=== PATIENT | female | born 1995 | race Caucasian/White ===

== ENCOUNTER 2021-03-18 13:23 | Outpatient (CLI) | payer OTHER, SELFPAY ==
--- NOTE | ~2021-03-18 | US_ITS ---
EXAMINATION: US OB <= 14 weeks fetus DATE: 03/18/2021 14:05 INDICATION: Vaginal spotting during first trimester . TECHNIQUE: Real-time pelvic ultrasound utilizing both a transvaginal and transabdominal probe was pe rformed. The interpreting radiologist was not present for the study. COMPARISON: None. FINDINGS: Portions of the uterus are obscured by the shadowing approximately 5 cm mass which exerts mass effect upon the more anterior bladder, possibly representing a calcified subserosal fibroid. There is an in trauterine gestational sac. A yolk sac and pole are identified. The crown rump length measures 1.1 cm, which correlates with an estimated gestational age of 7 weeks and 2 days. heart motion is identified measuring 135 beats per minute (bpm) by M-mode Doppler. The ovaries are not visualized. There is no free fluid in the pelvis. IMPRESSION: 1. Single living fetus with heart rate of 135 bpm. 2. Gestational age by ultrasound of 7 weeks 2 day(s) +/- 5 day(s) with ultrasound estimated date of d elivery (CARLIE) of 11/02/2021. 3. Indeterminate 5 cm shadowing mass which partially obscures the uterus which could represent a calc ified uterine fibroid Reviewed, dictated and finalized at location B. IMPRESSION: 1. Single living fetus with heart rate of 135 bpm. 2. Gestational age by ultrasound of 7 weeks 2 day(s) +/- 5 day(s) with ultrasou nd estimated date of delivery (CARLIE) of 11/02/2021. 3. Indeterminate 5 cm shadowing mass which partially obscures the uterus which could represent a calcified uterine fibroid
== END 2021-03-18 13:24 | disposition home or self-care (01) ==
PROVIDERS: Visit Provider Obstetrics & Gynecology
DX: O26.859 Spotting complicating pregnancy, unspecified trimester (principal); Z3A.01 Less than 8 weeks gestation of pregnancy
CPT/HCPCS: 76801

== ENCOUNTER 2021-10-26 00:01 | Inpatient (IN) | payer OTHER, SELFPAY ==
[2021-10-26] VITALS (181 sets, daily range): BP systolic 109–157; BP diastolic 57–107; PULSE 69–213; RESP 14–22; TEMP 36.6–37.6; O2SAT 94–100; BMI 40.3
--- OUTSIDE RECORDS SUMMARY | 2021-10-26 00:05 | XMS_ITS | Encounter Summary ---
:1995 Author Reason for Visit OB visit Assessment and Plan 1. Group B Streptococcus carrier 2. Routine care Discussion Note: None recorded.Patient educational handouts: No information available. Plan of Care Reminders Provider Appointments None ? ? recorded. Lab None ? ? recorded. Referral None ? ? recorded. Procedures None ? ? recorded. Surgeries None ? ? recorded. Imaging None ? ? recorded. Medications Name Start Date ? ? binzokzqca-dwrvtcgrjvxqz-pztvvmqg 50 mg-300 mg-40 mg c apsule ? TAKE 1 CAPSULE BY MOUTH EVERY 6 HOURS A S NEEDED FOR HEADACHE. DO NOT EXCEED 6 CAPSULES PER DAY ondansetron 4 mg disintegrating tablet ? PLACE 1 TABLET UNDER THE TONGUE EVERY 6-8 HOURS ? Medications Administered None recorded. Vitals Height Weight BMI Blood Pressure 5 ft 3 in 216 lbs 38.3 kg/m2 120/83 mm[Hg] Results Lab Results None recorded. Allergies Code Code System Name Reaction Severity Onset NKDA ? ? ? Problems Name Status Onset Date Source ? Active 04/26/2021 ?
--- OUTSIDE RECORDS SUMMARY | 2021-10-26 00:05 | XMS_ITS | Encounter Summary ---
:1995 Author Reason for Visit OB visit OB [id number] EDC 11/02/2021 LMP 01/25/2021 Assessment and Plan Assessment Note Patient is __36_weeks . Dis cussed plan. 1. Routine care Discussion Note: None recorded.Patient educational handouts: No information available. Plan of Care Reminders Provider Appointments None ? ? recorded. Lab None ? ? recorded. Referral None ? ? recorded. Procedures None ? ? recorded. Surgeries None ? ? recorded. Imaging None ? ? recorded. Medications Name Start Date ? ? fpnadblisl-aehmgeyrzaodf-hpmwlkbu 50 mg-300 mg-40 mg c apsule ? TAKE 1 CAPSULE BY MOUTH EVERY 6 HOURS A S NEEDED FOR HEADACHE. DO NOT EXCEED 6 CAPSULES PER DAY ondansetron 4 mg disintegrating tablet ? PLACE 1 TABLET UNDER THE TONGUE EVERY 6-8 HOURS ? Medications Administered None recorded. Vitals Height Weight BMI Blood Pressure 5 ft 3 in 213 lbs 37.7 kg/m2 117/80 mm[Hg] Results Lab Results None recorded. Allergies Code Code System Name Reaction Severity Onset NKDA ? ? ? Problems Name Status Onset Date Source
--- OUTSIDE RECORDS SUMMARY | 2021-10-26 00:05 | XMS_ITS | Encounter Summary ---
:1995 Author Reason for Visit OB visit OB [id number] Assessment and Plan Assessment Note Patient is ___weeks . Discu ssed plan. 1. Routine care ? ondansetron 4 mg disintegr ating tablet Discussion Note: None recorded.Patient educational handouts: No information available. Plan of Care Reminders Provider Appointments None ? ? recorded. Lab None ? ? recorded. Referral None ? ? recorded. Procedures None ? ? recorded. Surgeries None ? ? recorded. Imaging None ? ? recorded. Medications Name Start Date ? ? gtrzeogbdc-dovgclbwxrxdt-riqhezix 50 mg-300 mg-40 mg c apsule ? TAKE 1 CAPSULE BY MOUTH EVERY 6 HOURS A S NEEDED FOR HEADACHE. DO NOT EXCEED 6 CAPSULES PER DAY ondansetron 4 mg disintegrating tablet ? PLACE 1 TABLET UNDER THE TONGUE EVERY 6-8 HOURS ? Medications Administered None recorded. Vitals Height BMI 5 ft 3 in 36.3 kg/m2 Results Lab Results None recorded. Allergies Code Code System Name Reaction Severity Onset NKDA ? ? ? Problems Name
--- OUTSIDE RECORDS SUMMARY | 2021-10-26 00:05 | XMS_ITS ---
:1995 Author Care Team Providers Name Role Phone Yolis Burgos Primary Care Provider Unavailable Allergies Code Code System Name Reaction Severity Status Onset NKDA ? Medications Name Status Start Date Stop Date ? ? dbvgygpxqw-tmanewkelqtzr-qjaihptk 50 mg-300 mg-40 mg capsule Act scooter ? Not available TAKE 1 CAPSULE BY MOUTH EVERY 6 HOURS A S NEEDED FOR HEADACHE. DO NOT EXCEED 6 CAPSULES PER DAY fluconazole 150 mg tablet Completed ? 2020 TAKE 1 TABLET BY MOUTH ONCE DAILY ketoconazole 2 % shampoo Completed ? 021 APPLY TO WET HAIR LEAVE ON FOR 3 MINUTES THEN RINSE UP TO DAILY nystatin 100,000 unit/gram topical Completed ? 10/14/2021 ointment nystatin-triamcinolone 100,000 unit/gram-0.1 % topical ointment Unknown ? Not available APPLY TO THE AFFECTED AREA(S) BY TOPICAL ROUTE 2 TIMES PER DAY ondansetron 4 mg disintegrating tablet Active ? Not available PLACE 1 TABLET UNDER THE TONGUE EVERY 6-8 HOURS Active ? Not available terconazole 0.4 % vaginal cream Completed ? 05/23/2021 Tri-Sprintec (28) 0.18 mg(7)/0.215 mg(7)/0.25 mg(7)-35 mcg table t Completed ? 03/29/2021 TAKE 1 TABLET BY MOUTH ONCE DAILY triamcinolone acetonide 0.1 % topical Completed ? 10/14/2021 cream Problems Name Status Onset Date Source ? Active 04/26/2021 ? Large for Gestation Age Fetus Active ? ? Group B Streptococcus Carrier Active ? ?
--- OUTSIDE RECORDS SUMMARY | 2021-10-26 00:05 | XMS_ITS | Encounter Summary ---
:1995 Author Reason for Visit None recorded. Assessment and Plan 1. COVID-19 ? US, obstetric, follow-up Discussion Note: None recorded.Patient educational handouts: No information available. Plan of Care Reminders Provider Appointments None ? ? recorded. Lab None ? ? recorded. Referral None ? ? recorded. Procedures None ? ? recorded. Surgeries None ? ? recorded. Imaging US, 10/07/2021 [place] [facility], Follow-up Medications Name Start Date ? ? nhiopysiie-rooxgjmphhxkr-akupslhe 50 mg-300 mg-40 mg c apsule ? TAKE 1 CAPSULE BY MOUTH EVERY 6 HOURS A S NEEDED FOR HEADACHE. DO NOT EXCEED 6 CAPSULES PER DAY ondansetron 4 mg disintegrating tablet ? PLACE 1 TABLET UNDER THE TONGUE EVERY 6-8 HOURS ? Medications Administered None recorded. Vitals None recorded. Results Lab Results None recorded. Allergies Code Code System Name Reaction Severity Onset NKDA ? ? ? Problems Name Status Onset Date Source ? Active 04/26/2021 ? Large for Gestation Age Fetus Active ? ? Group B St
--- OUTSIDE RECORDS SUMMARY | 2021-10-26 00:05 | XMS_ITS | Encounter Summary ---
:1995 Author Reason for Visit OB visit [id number] CARLIE 11/02/2021 Assessment and Plan Assessment Note Patient is _38__weeks . Dis cussed plan. 1. Routine care Discussion Note: None recorded.Patient educational handouts: No information available. Plan of Care Reminders Provider Appointments None ? ? recorded. Lab None ? ? recorded. Referral None ? ? recorded. Procedures None ? ? recorded. Surgeries None ? ? recorded. Imaging None ? ? recorded. Medications Name Start Date ? ? mysdhajtxk-njhuowgtrukpl-ueedskca 50 mg-300 mg-40 mg c apsule ? TAKE 1 CAPSULE BY MOUTH EVERY 6 HOURS A S NEEDED FOR HEADACHE. DO NOT EXCEED 6 CAPSULES PER DAY ondansetron 4 mg disintegrating tablet ? PLACE 1 TABLET UNDER THE TONGUE EVERY 6-8 HOURS ? Medications Administered None recorded. Vitals Height Weight BMI Blood Pressure 5 ft 3 in 219 lbs 38.8 kg/m2 138/89 mm[Hg] Results Lab Results None recorded. Allergies Code Code System Name Reaction Severity Onset NKDA ? ? ? Problems Name Status Onset Date Source ?
--- OUTSIDE RECORDS SUMMARY | 2021-10-26 00:06 | XMS_ITS | Encounter Summary ---
:1995 Author Reason for Visit OB visit OB [id number] EDC 11/02/2021 LMP 01/25/2021 Assessment and Plan Assessment Note Patient is _30__weeks . Dis cussed plan. 1. Routine care Discussion Note: None recorded.Patient educational handouts: No information available. Plan of Care Reminders Provider Appointments None ? ? recorded. Lab None ? ? recorded. Referral None ? ? recorded. Procedures None ? ? recorded. Surgeries None ? ? recorded. Imaging None ? ? recorded. Medications Name Start Date ? ? kvmfbvmeog-qlksyzgnfhnxd-slsfjouf 50 mg-300 mg-40 mg c apsule ? TAKE 1 CAPSULE BY MOUTH EVERY 6 HOURS A S NEEDED FOR HEADACHE. DO NOT EXCEED 6 CAPSULES PER DAY ondansetron 4 mg disintegrating tablet ? PLACE 1 TABLET UNDER THE TONGUE EVERY 6-8 HOURS ? Medications Administered None recorded. Vitals Height Weight BMI Blood Pressure 5 ft 3 in 205 lbs 36.3 kg/m2 134/86 mm[Hg] Results Lab Results None recorded. Allergies Code Code System Name Reaction Severity Onset NKDA ? ? ? Problems Name Status Onset Date Source
--- OUTSIDE RECORDS SUMMARY | 2021-10-26 00:06 | XMS_ITS | Encounter Summary ---
:1995 Author Reason for Visit OB problem OB problem [id number] EDC 11/02/2021 LMP 01/25/2021 follow up on blood pressure Assessment and Plan 1. Routine care Discussion Note: None recorded.Patient educational handouts: No information available. Plan of Care Reminders Provider Appointments None ? ? recorded. Lab None ? ? recorded. Referral None ? ? recorded. Procedures None ? ? recorded. Surgeries None ? ? recorded. Imaging None ? ? recorded. Medications Name Start Date ? ? ysuliypvql-tvggsryabeecc-oktzzdua 50 mg-300 mg-40 mg c apsule ? TAKE 1 CAPSULE BY MOUTH EVERY 6 HOURS A S NEEDED FOR HEADACHE. DO NOT EXCEED 6 CAPSULES PER DAY ondansetron 4 mg disintegrating tablet ? PLACE 1 TABLET UNDER THE TONGUE EVERY 6-8 HOURS ? Medications Administered None recorded. Vitals Height Weight BMI Blood Pressure 5 ft 3 in 202 lbs 35.8 kg/m2 128/85 mm[Hg] Results Lab Results None recorded. Allergies Code Code System Name Reaction Severity Onset NKDA ? ? ? Problems Name Status Onset Date Source ? Active
--- OUTSIDE RECORDS SUMMARY | 2021-10-26 00:06 | XMS_ITS | Encounter Summary ---
:1995 Author Reason for Visit OB visit Assessment and Plan 1. Large for gestation age fetus 2. Routine care Discussion Note: None recorded.Patient educational handouts: No information available. Plan of Care Reminders Provider Appointments None ? ? recorded. Lab None ? ? recorded. Referral None ? ? recorded. Procedures None ? ? recorded. Surgeries None ? ? recorded. Imaging None ? ? recorded. Medications Name Start Date ? ? bywlzkwxxm-wsctntaiotpfe-axtfgxfj 50 mg-300 mg-40 mg c apsule ? TAKE 1 CAPSULE BY MOUTH EVERY 6 HOURS A S NEEDED FOR HEADACHE. DO NOT EXCEED 6 CAPSULES PER DAY ondansetron 4 mg disintegrating tablet ? PLACE 1 TABLET UNDER THE TONGUE EVERY 6-8 HOURS ? Medications Administered None recorded. Vitals Height Weight BMI Blood Pressure 5 ft 3 in 199 lbs 35.3 kg/m2 124/78 mm[Hg] Results Lab Results None recorded. Allergies Code Code System Name Reaction Severity Onset NKDA ? ? ? Problems Name Status Onset Date Source ? Active 04/26/2021 ?
--- OUTSIDE RECORDS SUMMARY | 2021-10-26 00:06 | XMS_ITS | Encounter Summary ---
:1995 Author Reason for Visit None recorded. Assessment and Plan 1. Pre-existing maternal disease complicating ? US, obstetric, follow-up Discussion Note: None recorded.Patient educational handouts: No information available. Plan of Care Reminders Provider Appointments None ? ? recorded. Lab None ? ? recorded. Referral None ? ? recorded. Procedures None ? ? recorded. Surgeries None ? ? recorded. Imaging US, 08/09/2021 [facility] [facility], Follow-up Medications Name Start Date ? ? gvbykwpemi-tqgsupotfavex-lgnmsbga 50 mg-300 mg-40 mg c apsule ? [...]
[2021-10-26 00:41] LABS: Basophils Percent Auto 0.3 % (0.2-1.2); Eosinophils Absolute Auto 0.1 K/mm3 (0-0.3); Hematocrit 37.3 % (37.0-47.0); Hemoglobin 12.4 g/dL (12.0-15.0); Immature Granulocyte Percent A 0.9 % (0-0.5); Lymphocytes Absolute Auto 2.32 K/mm3 (0.9-3.2); Lymphocytes Percent Auto 21.2 % (18.3-44.2); Mean Corpuscular HGB Conc 33.2 g/dl (32-36); Mean Corpuscular Hemoglobin 31.2 pg (26-34); Mean Corpuscular Volume 93.7 fl (80-100); Mean Platelet Volume 9.8 fl (7.4-10.4); Monocytes Absolute Auto 0.7 K/mm3 (0.1-0.6); Monocytes Percent Auto 6.6 % (2.6-8.5); Neutrophils Absolute Auto 7.7 K/mm3 (1.3-6.7); Platelet Count Result 229 k/mm3 (150-375); Red Blood Count 3.98 M/mm3 (4.2-5.4); Red Cell Distribution Width 13.1 % (11.5-14.5); White Blood Count 10.9 K/mm3 (4.5-10.0)
--- NOTE | 2021-10-26 00:45 | LDADM ---
This patient, Tammy Constantino, was admitted to Labor/Delivery/Recovery 104 on 10/26/21 at 00:01. Plans for labor, pain management and were discussed with patient. Patient/family oriented to hospital policies and general routines including ID bracelet, bed and alarms, visiting hours, pain management, procedures, bathroom and other care routines, personal items, smoking policy, room service/diet and guest tray routines, security routines, and visiting hours. Patient/Family are encouraged to report perceived risks to care and to ask questions if they do not understand what they are told or what they should do. See OBIX for further documentation.
[2021-10-26] MEDS: DINOPROSTONE 10 MG VAG INSERT VAGINAL (01:18)
--- NOTE | 2021-10-26 06:06 | WPDANESEPP ---
Anes - Eval Pre Procedure Procedure: labor epidural Date/Time: 10/26/21 06:06 Surgeon: margarita Pre Op Diagnosis: IOL Patient Data Age: 26 Gender: F Height: 1.57 m Weight: 100 kg Last Vital Signs Temp 36.7 C 10/26/21 03:13 Pulse 92 10/26/21 03:00 Resp 16 10/26/21 03:13 BP 136/66 10/26/21 03:00 Pulse Ox 94 10/26/21 00:53 Allergies Allergy/AdvReac Type Severity Reaction Status Date / Time No Known Allergies Allergy Verified 10/03/21 15:39 Home Medications Medication Instructions Recorded Confirmed Type PNV cmb#95-ferrous fumarate-FA 1 tablet PO DAILY 10/03/21 10/03/21 History [] aspirin 81 mg PO DAILY 10/03/21 10/03/21 History Laboratory Tests 10/26/21 10/26/21 10/26/21 00:24 00:24 00:24 WBC 10.9 K/mm3 H K/mm3 (4.5-10.0) RBC 3.98 M/mm3 L M/mm3 (4.2-5.4) Hgb 12.4 g/dL g/dL (12.0-15.0) Hct 37.3 % % (37.0-47.0) MCV 93.7 fl fl (80-100) MCH 31.2 pg pg (26-34) MCHC 33.2 g/dl g/dl (32-36) RDW 13.1 % % (11.5-14.5) Plt Count 229 k/mm3 k/mm3 (150-375) MPV 9.8 fl fl (7.4-10.4) Immature Gran % (Auto) 0.9 % H % (0-0.5) Neut % (Auto) 70.0 % % (45.5-73.1) Lymph % (Auto) 21.2 % % (18.3-44.2) [place] % (Auto) 6.6 % % (2.6-8.5) Eos % (Auto) 1.0 % % (0-4.4) Baso % (Auto) 0.3 % % (0.2-1.2) Lymph # (Auto) 2.32 K/mm3 K/mm3 (0.9-3.2) [place] # (Auto) 0.7 K/mm3 H K/mm3 (0.1-0.6) Eos # (Auto) 0.1 K/mm3 K/mm3 (0-0.3) Baso # (Auto) 0.0 K/mm3 K/mm3 (0.0-0.1) Abs Immat Gran (auto) 0.10 K/mm3 H K/mm3 (0.00-0.031) Absolute Neuts (auto) 7.7 K/mm3 H K/mm3 (1.3-6.7) Absolute Nucleated RBC 0.0 K/mm3 K/mm3 (0.0-0.012) Nucleated RBC % 0.0 % % (0.0-0.2) RPR Pending Blood Type O Positive Antibody Screen Negative Patient hx anesthesia problems: none Family hx anesthesia problems: none Results Review: All pre-operative results and documents have been reviewed as part of the pre-operative evaluation. [facility] Family History Family History Other No pertinent family history Social History Social History (Updated 10/26/21 @ 01:04 by Fatimah Negron RN) Smoking status: Never smoker Second hand tobacco smoke exposure: No Alcohol intake: never Substance use: never Substance use type: does not use Living arrangements: alone Occupation/Education: occupation Gender identity (if verbalized by the patient): Female Sexual Orientation (if Verbalized by the Patient): Straight or Heterosexual Spiritual care concerns: No Agree to blood products: Yes Exam Day of Procedure 10/26/21 06:06
--- NOTE | 2021-10-26 07:29 | WPDOBADMIT ---
Obstetrics - Admit Note Admission Note: record reviewed. No pertinent additions to the history and/or any subsequent changes in the physical findings that are not consistent with the expected course of the were found. Elective IOL, cervadil placed by rn Additions to the history and/or subsequent changes in the physical findings follow. None.
[2021-10-26] MEDS: LACTATED RINGERS 1,000 ML 125 ML IV CONT ×3 (10:10→22:46)
[2021-10-26] MEDS: AMPICILLIN 2 GM/NS 100 ML 2 GM/100 ML BAG IVPB (10:11)
[2021-10-26] MEDS: fentaNYL CITRATE INJ (*CRX) 100 MCG/2 ML VIAL IV PUSH (12:17)
[2021-10-26 12:23] LABS: Rapid Plasma Reagin Non-Reactive (NonReactive)
--- NOTE | 2021-10-26 12:23 | PM.OBPNLAB ---
Pain Control Date/time seen: 10/26/21 12:23 SVE 1.5/80/-2 AROM mild amount of clear odorless fluid
[2021-10-26] MEDS: OXYTOCIN 30 UNITS/NS 500 ML 30 UNITS/500 ML BAG 6 UNITS IV CONT (13:14)
[2021-10-26] MEDS: AMPICILLIN 1 GM/NS 50 ML 1 GM/50 ML BAG IVPB ×2 (18:34→22:40)
[2021-10-27] VITALS (17 sets, daily range): BP systolic 95–149; BP diastolic 61–94; PULSE 63–110; RESP 16–18; TEMP 36.6–37.3; O2SAT 98–100
--- NOTE | 2021-10-27 00:31 | P.PCNOB_ITS ---
OB - Delivery Note Procedure Delivery date: 10/27/21 Procedure: vaginal delivery Induction method: AROM, Per Pitocin Protocol and Per Cervidil Protocol Delivery monitor: External FHT, External Uterine and Internal Uterine Route of delivery: Laceration Description: Other (small RML, one stitch to close) Delivery repair: vicryl Quantitative Blood Loss (ml): 125 Anesthesia type: Epidural Disposition: Floor [place] Baby Date of : 10/27/21 Time of : 00:14 Weeks of gestation at delivery: 39 Infant gender: Male Weight (pounds): 7 Weight (ounces): 12 presentation: vertex position: Left Occiput Anterior Placenta delivery description: Spontaneous Cord Vessel Description: 3 Vessels, Nuchal Cord, Loose, Reduced, Clamped/Cut and Delayed Cord Clamping score one minute: 8 score five minutes: 9 Narrative: mother and baby in stable condition
[2021-10-27] MEDS: OXYTOCIN 30 UNITS/NS 500 ML 30 UNITS/500 ML BAG 125 UNITS IV CONT (00:50)
[2021-10-27] MEDS: IBUPROFEN 600 MG TABLET PO ×4 (01:32→20:17)
[2021-10-27] MEDS: ACETAMINOPHEN 325 MG TABLET 650 MG PO ×3 (01:33→20:17)
[2021-10-27] MEDS: WITCH HAZEL 40 PADS 1 PAD TOPICAL (01:34)
[2021-10-27] MEDS: BENZOCAINE 20% AER SPR (*SP) 56 GM CAN 1 SPRAY TOPICAL (01:34)
--- NOTE | 2021-10-27 03:18 | OBPPTRN ---
Patient transferred to post room #292 via W/C. Support person present. Oriented to unit, room, information board, rooming in, admission packet and security measures. Patient verbalizes understanding.
[2021-10-27] MEDS: MULTIVIT/MIN/PREN/FOL AC/IRON TABLET 1 TAB PO (07:14)
[2021-10-28] MEDS: ACETAMINOPHEN 325 MG TABLET 650 MG PO ×2 (04:26→11:08)
[2021-10-28] MEDS: IBUPROFEN 600 MG TABLET PO ×2 (04:26→11:07)
[2021-10-28 05:31] LABS: Hematocrit 36.1 % (37.0-47.0); Hemoglobin 11.9 g/dL (12.0-15.0)
--- NOTE | 2021-10-28 07:44 | PM.OBPNVD ---
OB - PN: Subj Subjective Date/time seen: 10/28/21 07:44 Patient comments: no complaints baby status: doing well OB - PN: Obj Data Labs CBC & Chem 7: 10/28/21 04:26 Labs: Laboratory Results - last 24 hr 10/28/21 04:26 Hgb 11.9 L Hct 36.1 L OB - PN A/P Plan day: 1 Plan: routine care and discharge home Time Spent With Patient Time: Total time spent is greater than 50% in coordination of care (as documented) at patient's floor/unit and/or counseling patient: Review of Systems Review of Systems: All systems reviewed & are unremarkable except as noted in HPI and below Exam Const: General: cooperative, healthy appearing, comfortable and no acute distress
[2021-10-28 08:30] VITALS: BP 138/81; PULSE 98; RESP 19; TEMP 35.6; O2SAT 99
[2021-10-28] MEDS: DOCUSATE SODIUM 100 MG CAPSULE PO (08:34)
[2021-10-28] MEDS: MULTIVIT/MIN/PREN/FOL AC/IRON TABLET 1 TAB PO (08:34)
[2021-10-29 08:38] VITALS: BP 130/85; PULSE 91; RESP 20; TEMP 36.8; O2SAT 99
--- NOTE | 2021-10-31 12:11 | PM.OBDSVD ---
DS: Admitting Diagnosis Discharge Date 10/28/21 Admitting Diagnosis IOL OB - DS: Summary OB Procedures : None OB Procedures Intrapartum: Spontaneous Vag Delivery OB Procedures: : None Time Spent with Patient Time attestation: Total time spent providing and/or coordinating discharge services: Discharge Plan Discharge Attending physician on discharge: Fernando Chio Consulting providers: Yolis Burgos Discharging Clinician: Yolis Burgos Patient Disposition: Home, Self-Care Activity: pelvic rest Diet: regular Discharge Instructions: Education: Mom and Baby Guide Given to: Mother Follow-Up: Call your delivering provider's office for an appointment to be seen in: 4 Weeks Mom and baby should come to the [facility] for the follow-up appointment. Appointment Date/Time: October 29, 2021 at 9:00 am What to expect at your follow-up visit: Physical Assessment Call [phone] if you are unable to keep your appointment time. BREAST CARE: * Wear a snug supportive bra. * For engorgement discomfort: Breast Feeding: * Apply warm moist washcloths * Express milk as needed to relieve engorgement * Wear loose clothing * For sore nipples: * Identify correct latch-on * Apply warm moist washcloths before and after nursing * Air dry nipples after nursing * May apply Lansinoh cream to nipples PERINEAL CARE: * Until bleeding stops, use your nguyễn bottle after urinating * Change your pad frequently throughout the day * You may take sitz baths several times a day (fill your bathtub with warm water and soak for 20 minutes.) Do NOT bathe in the water * No tub baths until seen by your physician - You may shower ACTIVITY: * Rest as much as possible. * Do not exercise or lift anything heavier than your baby (such as laundry or other children.) * Avoid stairs or driving as much as possible. * Do not put anything into the vagina. No douching, tampons, or sexual activity until seen by physician. NOTIFY PHYSICIAN IF YOU HAVE ANY QUESTIONS OR IF ANY OF THE FOLLOWING SYMPTOMS OCCUR: * If your perineum becomes red, swollen, or more painful than what you have experienced in the hospital. * If your vaginal bleeding becomes foul smelling. * If your vaginal bleeding becomes more heavy than a period or if your bleeding changes from pink to bright red. However, you may pass an occasional walnut-sized clot once or twice for the first week . * If you experience a sharp, shooting pain in you calves. * If you discover a hard, reddened area on your breast or if you experience flu-like symptoms. DIET: * Eat regular, well-balanced meals. * Drink plenty of fluids daily. If , drink to thirst. Patient Instructions: Antibiotic Form Stand Alone Forms: General Discharge Information Follow-up/Referrals: Yolis Burgos CNM [Certified Nurse [employer] Worker Helper] - 4 Weeks Discharge Medications: Continued PNV cmb#95-ferrous fumarate-FA [] 28 mg iron- 800 mcg Tablet 1 tablet PO DAILY RF: 0 Discontinued aspirin 81 mg Tablet 81 mg PO DAILY RF: 0 Date of admission: 10/26/21 00:01 Primary Care Provider: PHYSICIAN,SLUBBER RUNNER Admitting Provider: Fernando Choi Attending physician on admission: Fernando Choi Condition: Stable
== END 2021-10-28 12:07 | disposition home or self-care (01) | DRG 807 ==
LOC: ANHLDR 00:03 → ANHOB2 10-27 03:18
PROVIDERS: Advanced Practice Midwife; Admitting Provider Obstetrics & Gynecology; Visit Provider Obstetrics & Gynecology
DX: O99.824 Streptococcus B carrier state complicating childbirth (principal); Z37.0 Single live birth; Z3A.39 39 weeks gestation of pregnancy; O36.8330 Maternal care for abnormalities of the fetal heart rate or rhythm, third trimester, not applicable or unspecified; O69.81X0 Labor and delivery complicated by cord around neck, without compression, not applicable or unspecified
CPT/HCPCS: 36415; 85014; 85018; 85025; 86592; 86850; 86900; 86901; A9270; J0290; J2590; J2795; J3010; J7120

== ENCOUNTER 2022-05-21 10:32 | Emergency (ER) | payer OTHER, SELFPAY ==
[2022-05-21 10:41] VITALS: BP 139/88; PULSE 113; RESP 16; TEMP 38.1; O2SAT 99
--- NOTE | 2022-05-21 10:41 | ED.URI ---
HPI - URI/Sore Throat General Chief Complaint: Upper Respiratory Infection Stated Complaint: High B/P, Fever,Sinus Time Seen by Provider: 05/21/22 10:42 Source: patient Mode of arrival: ambulatory Limitations: no limitations History of Present Illness HPI Narrative: Ms. Constantino is a 26-year-old female patient presenting to clinic today with complaints of elevated blood pressure, fever, and sinus pressure 3 days. She reports high fever was 101? F. States that her child had RSV approximately 2 weeks ago. MD elicited complaint: sore throat and nasal congestion Related Data Allergies Allergy/AdvReac Type Severity Reaction Status Date / Time No Known Allergies Allergy Verified 05/21/22 10:45 Review of Systems Review of Systems: Pertinent positives per HPI. Patient denies any rash, headache, visual changes, dizziness, shortness of breath, chest pain, palpitations, nausea, vomiting, diarrhea, constipation, abdominal pain, or any urinary issues. PMFSH Family History Family History Other No pertinent family history Social History Social History (Updated 10/26/21 @ 01:04 by Fatimah Negron RN) Smoking status: Never smoker Second hand tobacco smoke exposure: No Alcohol intake: never Substance use: never Substance use type: does not use Gender identity (if verbalized by the patient): Female Sexual Orientation (if Verbalized by the Patient): Straight or Heterosexual Spiritual care concerns: No Agree to blood products: Yes Comments At the time of my signature, I reviewed and agree with the nursing past medical, surgical, social, and family history. There is no relevant family history pertinent to the patient complaint. Exam Narrative: General: Well-developed, well nourished, in no apparent distress Head: Normocephalic, atraumatic Eyes: Pupils equally round and reactive to light bilaterally, EOM intact, sclera and conjunctive clear, no discharge, lids normal Ears: TMs intact and clear, ear canals clear, no drainage, grossly hearing normal. Nose: Nares patent, clear nasal discharge, moderate inflammation, no sinus tenderness. Mouth: Oral pharynx without lesions or masses, good dentition, MMM. Neck: Supple, trachea midline, no enlargement of anterior or posterior cervical nodes, no thyroid masses or goiter palpable. Cardio: Regular rate and rhythm, s1 and s2 normal, no murmur appreciated. Resp: Clear to auscultation bilaterally, no rhonchi, rales, wheezing or rubs Course Course Emergency Course: Portions of this record may have been created with voice recognition software. Level of Care: Express Care Visit Vital Signs Vital signs: Vital signs reviewed MDM - URI/Sore Throat MDM Narrative Medical decision making narrative: at the time of visit patient is resting comfortably on the exam table. Influenza a and RSV testing was completed and influenza a testing was positive in the clinic today. We will send the patient in a prescription for some Tamiflu and supportive measures were discussed with the patient she voiced understanding of discharge instructions and agrees to treatment plan. Differential Diagnosis Differential diagnosis: Likely sinusitis, viral infection, influenza and pharyngitis Discharge Plan Discharge Clinical Impression: Influenza A Patient Disposition: Home, Self-Care Condition: Stable Instructions: Antibiotic Form, Influenza (ED) Additional Instructions: Take prescription medications only as prescribed-tamiflu Increase fluids and stay well hydrated Tylenol/motrin for pain/fever Flonase and OTC antihistamines as directed Vicks vapor rub to open sinuses Sinus rinses for congestion Cepacol spray, cough drops, throat lozenges, warm tea with honey/lemon, gargle salt water to soothe throat BRAT diet for diarrhea Clear liquids x 24 hours then advance as tolerated for nausea/vomiting Go to t
== END 2022-05-21 11:03 | disposition home or self-care (01) ==
PROVIDERS: Emergency Provider Nurse Practitioner Family
DX: J10.1 Influenza due to other identified influenza virus with other respiratory manifestations (principal); Z86.16 Personal history of COVID-19
CPT/HCPCS: 87420; 87804; 99213; G0463

== ENCOUNTER 2022-11-04 11:21 | Emergency (ER) | payer OTHER, SELFPAY ==
[2022-11-04 11:39] VITALS: BP 130/82; PULSE 136; RESP 16; TEMP 38.1; O2SAT 100
--- NOTE | 2022-11-04 12:28 | ED.GENADULT ---
HPI - General Adult General Chief complaint: Upper Respiratory Infection Stated complaint: Sinus Source: patient and RN notes reviewed History of Present Illness HPI narrative: 27-year-old female presents to urgent care with complaints of congestion, pressure, a slight cough, pressure in her ears, and sore throat x2 days. Patient also reports fevers. Denies any vomiting, diarrhea chest pain, or shortness of breath. denies any abdominal pain or dysuria. Patient states her son has an upper respiratory infection at home. Patient last took Ibuprofen this morning. Some parts of this dictation were generated by voice recognition software and may contain typographical and/or grammatical inaccuracies. Related Data Allergies Allergy/AdvReac Type Severity Reaction Status Date / Time No Known Allergies Allergy Verified 11/04/22 11:53 Review of Systems Review of Systems: Pertinent positives and pertinent negatives per HPI. [facility] Family History Family History Other No pertinent family history Social History Social History (Updated 10/26/21 @ 01:04 by Fatimah Negron RN) Smoking status: Never smoker Second hand tobacco smoke exposure: No Alcohol intake: never Substance use: never Substance use type: does not use Living arrangements: alone Occupation/Education: occupation Gender identity (if verbalized by the patient): Female Sexual Orientation (if Verbalized by the Patient): Straight or Heterosexual Spiritual care concerns: No Agree to blood products: Yes Comments At the time of my signature, I reviewed and agree with the nursing past medical, surgical, social, and family history. There is no relevant family history pertinent to the patient complaint. Exam Narrative: GENERAL: This is a well-nourished, well-developed patient, in no apparent distress. HEAD: normocephalic, atraumatic. EYES: Sclera clear/white. Vision is grossly intact. EARS: External ears normal, auditory canals clear and without drainage, TMs normal without perforation. Hearing grossly intact. NOSE: External nose normal with no obvious nasal discharge, nares without redness, no rhinorrhea. THROAT: Mucous membranes moist, posterior pharynx clear. NECK: Neck supple, non-tender without lymphadenopathy, masses or thyromegaly. CARDIOVASCULAR: Regular rate and rhythm without murmurs, gallops, or rubs. RESPIRATORY: Clear to auscultation. Breath sounds equal bilaterally. No wheezes, rales, or rhonchi. GASTROINTESTINAL: Abdomen soft, non-tender, nondistended. Bowel sounds are active. No hepato-splenomegaly, or palpable masses. No guarding. SKIN: warm, intact with no suspicious lesions or rash, good texture and turgor. NEURO: awake, alert, and oriented to person, place and time. There were no obvious focal neurologic abnormalities. Course Course Level of Care: Express Care Visit Vital Signs Vital signs: Vital Signs Temperature 100.5 F H 11/04/22 11:39 Pulse Rate 136 H 11/04/22 11:39 Respiratory Rate 16 11/04/22 11:39 Blood Pressure 130/82 11/04/22 11:39 Pulse Oximetry 100 11/04/22 11:39 Oxygen Delivery Room Air 11/04/22 11:39 Temperature 100.5 F H 11/04/22 11:39 Pulse Rate 136 H 11/04/22 11:39 Respiratory Rate 16 11/04/22 11:39 Blood Pressure 130/82 11/04/22 11:39 Pulse Oximetry 100 11/04/22 11:39 Oxygen Delivery Room Air 11/04/22 11:39 reviewed Medical Decision Making MDM Narrative Medical decision making narrative: Viral illness may last between 7-21 days; antibiotics do not cure viral illness and are NOT recommended at this time. Also, recommend symptomatic treatment includes: rest, fluids, and increase humidity of the air at home. Recommend Acetaminophen as directed on the bottle to reduce fever, pain, headache. Please schedule a follow-up visit with your personal physician for further evaluation and treatment within 3-5days. I
== END 2022-11-04 12:35 | disposition home or self-care (01) ==
PROVIDERS: Emergency Provider Nurse Practitioner Family
DX: B34.9 Viral infection, unspecified (principal); Z20.822 Contact with and (suspected) exposure to COVID-19
CPT/HCPCS: 87081; 87426; 87804; 87880; 99213; C9803; G0463

== ENCOUNTER 2023-11-08 12:49 | Emergency (ER) | payer OTHER, SELFPAY ==
[2023-11-08 13:07] VITALS: BP 118/86; PULSE 87; RESP 16; TEMP 37.1; O2SAT 100
--- NOTE | 2023-11-08 13:46 | ED.URI ---
HPI - URI/Sore Throat General Chief Complaint: Eye Problems Stated Complaint: Right Eye/ Sinus Time Seen by Provider: 11/08/23 13:47 Source: patient, RN notes reviewed and old records reviewed Mode of arrival: ambulatory Limitations: no limitations History of Present Illness HPI Narrative: 28-year-old female presents to the [facility] with complaints of right eye redness, itching for the last 2-3 days. Has been using allergy eye drops with no relief. Also states she has had some sinus congestion for about a week. Reports clear discharge, did have crusting and some purulent discharge Denies any fevers. No other symptoms. Denies significant change in vision Treatments prior to arrival: other Related Data Allergies Allergy/AdvReac Type Severity Reaction Status Date / Time No Known Allergies Allergy Verified 11/08/23 13:07 Review of Systems Review of Systems: All systems reviewed & are unremarkable except as noted in HPI and below Constitutional: Constitutional: Reports no additional constitutional complaints Eyes: Eyes: Reports as per HPI, Reports eye discharge, Reports irritation and Reports itchy eyes ENT: Reports as per HPI and Reports nasal congestion Cardiovascular: Cardiovascular: Reports no additional cardiovascular complaints, Denies chest pain and Denies dyspnea Respiratory: Respiratory: Reports no additional respiratory complaints, Denies chest congestion, Denies cough and Denies dyspnea Gastrointestinal: Gastrointestinal: Reports no additional gastrointestinal complaints, Denies abdominal pain, Denies nausea and Denies vomiting Musculoskeletal: Musculoskeletal: Reports no additional musculoskeletal complaints Integumentary/Breasts: Skin/Breast: Reports system reviewed and no additional complaints, except as docu Neurologic: Reports system reviewed and no additional complaints, except as documented Psychiatric: Psychiatric: Reports no additional psychiatric complaints Allergic/Immunologic: Allergic/Immunologic: Reports no additional allergic/immunologic complaints [facility] Surgical History Surgical History (Updated 11/08/23 @ 19:07 by Jennifer Jackson APRN) History of tonsillectomy Family History Family History Other No pertinent family history Social History Social History Smoking status: Never smoker Second hand tobacco smoke exposure: No Alcohol intake: never Substance use: never Substance use type: does not use Living arrangements: alone Occupation/Education: occupation Gender identity (if verbalized by the patient): Female Sexual Orientation (if Verbalized by the Patient): Straight or Heterosexual Spiritual care concerns: No Agree to blood products: Yes Comments At the time of my signature, I reviewed and agree with the nursing past medical, surgical, social, and family history. There is no relevant family history pertinent to the patient complaint. Exam Const: General: cooperative, healthy appearing, comfortable, no acute distress, well developed, alert and well nourished Nutritional Appearance: well nourished Orientation/consciousness: patient oriented x3 Limitations: no limitations HENMT: Head: normal to inspection Ears: hearing grossly normal bilaterally, external ears normal, TM's normal bilaterally, EAC's normal and mastoids normal Face/Nose/Sinus: Normal external nose present, Normal nares present, Normal nasal mucous membranes and turbinates present, Nasal discharge present clear bilateral, normal facial exam and face symmetric Face and sinus: normal facial exam and face symmetric Mouth: Yes Normal oral and palatal mucosa present, Yes lip normal and Yes moist mucous membranes Throat: posterior oropharynx normal, uvula midline, postnasal drainage, tonsils absent and no uvular edema Eyes: General: appearance normal, both eyes and all related structures
== END 2023-11-08 14:02 | disposition home or self-care (01) ==
PROVIDERS: Emergency Provider Nurse Practitioner
DX: H10.9 Unspecified conjunctivitis (principal); J01.90 Acute sinusitis, unspecified
CPT/HCPCS: 99211; G0463

== ENCOUNTER 2025-06-26 08:16 | Emergency (ER) | payer OTHER, SELFPAY ==
--- NOTE | 2025-06-26 08:23 | ED_ITS ---
HPI - Skin/Abscess/Foreign Bdy General Chief complaint: Skin/Abscess/Foreign Body Stated complaint: Skin Issues Time Seen by Provider: 06/26/25 08:24 Source: patient, RN notes reviewed and old records reviewed Mode of arrival: ambulatory Limitations: no limitations History of Present Illness HPI narrative: 29-year-old female presents to the [facility] with a reddened area to the left inner upper arm. States it started as a small red area yesterday morning. No treatment prior to arrival. Patient denies any injury. No wound noted. Mildly raised. Warm to touch, Onset (ago): day(s) (1) Treatments prior to arrival: none Related Data Allergies Allergy/AdvReac Type Severity Reaction Status Date / Time No Known Allergies Allergy Verified 06/26/25 08:28 Review of Systems 2 Review of Systems: All systems reviewed & are unremarkable except as noted in HPI and below Constitutional: Constitutional: Reports no additional constitutional complaints Respiratory: Respiratory: Reports no additional respiratory complaints, Denies chest congestion, Denies cough and Denies dyspnea Musculoskeletal: Musculoskeletal: Reports no additional musculoskeletal complaints Integumentary/Breasts: Skin/Breast: Reports as per HPI [facility] Past Medical History Medical History Low back pain with right-sided sciatica Hirsutism Acne Surgical History Surgical History History of tonsillectomy Family History Family History Mother Hypertension Other No pertinent family history Social History Social History Smoking status: Never smoker Second hand tobacco smoke exposure: No Alcohol intake: never Substance use: never Substance use type: does not use Lack of Transportation: No Lack of Food: Never True Current Housing: I Have Housing Concerned About Future Housing: No Difficulty Paying Gas/Electric Bills: No Difficulty Paying for Meds: No Currently Unemployed: No Education: Decline to Answer Difficulty w/ Childcare or Family Care: No Living arrangements: alone Occupation/Education: occupation Gender identity (if verbalized by the patient): Female Sexual Orientation (if Verbalized by the Patient): Straight or Heterosexual Spiritual care concerns: No Agree to blood products: Yes Comments At the time of my signature, I reviewed and agree with the nursing past medical, surgical, social, and family history. There is no relevant family history pertinent to the patient complaint. Exam 2 Const: General: cooperative, healthy appearing, comfortable, no acute distress, well developed, alert and well nourished Nutritional Appearance: w ell nourished Orientation/consciousness: patient oriented x3 Limitations: no limitations HENMT: Head: normal to inspection Mouth: Yes Normal oral and palatal mucosa present, Yes lip normal, Yes tongue normal and Yes moist mucous membranes Eyes: General: appearance normal, both eyes and all related structures A lignment and Position: alignment normal Neck: Neck: normal visual inspection, full ROM, no lymphadenopathy and no meningeal signs Chest: Chest palpation & inspection: normal inspection of the chest Resp: Effort & Inspection: normal respiratory effort and able to speak in complete sentences Cardio: Rate: regular rate Skin: General skin exam: normal color and no rashes or lesions noted Full body images: 1. 3 and half by 3 and half mildly raised, no fluctuance, warm to touch reddened area. No scabbed area, no surrounding ecchymosis Neuro: General: patient oriented x3, gait normal, moves all extremities and no meningeal signs Cognition (Neuro): normal cognition Speech: normal speech Gait exam (Neuro): Normal gait present Extrem: General: normal to inspection, full ROM, capillary refill normal and normal gait Psych: Appearance: grossly normal and well kempt Mental Status: mental status grossly normal Speech and movement: Normal speech and movement present and Clear speech present Affect: normal affect Attitude: cooperative Course Course Level of Care: Express Care Visit Vital Signs Vital signs: Vital Signs Temperature 97.9 F 06/26/25 08:24 Pulse Rate 86 06/26/25 08:24 Respiratory Rate 16 06/26/25 08:24 Blood Pressure 129/80 06/26/25 08:24 Pulse Oximetry 100 06/26/25 08:24 Oxygen Delivery Room Air 06/26/25 08:24 Temperature 97.9 F 06/26/25 08:24 Pulse Rate 86 06/26/25 08:24 Respiratory Rate 16 06/26/25 08:24 Blood Pressure 129/80 06/26/25 08:24 Pulse Oximetry 100 06/26/25 08:24 Oxygen Delivery Room Air 06/26/25 08:24 reviewed MDM MDM Narrative Medical decision making narrative: patient sitting in exam room. Patient is nontoxic, vitals stable. Patient reports increased redness to the left inner upper arm. Erythema noted without ecchymosis. No injury. No fluctuance. concern for cellulitis. Will cover with antibiotic patient is appropriate for outpatient treatment with close follow-up Discharge instructions reviewed with patient, as well as provided in writing per nursing staff. The instructions also include specific and strict return/GO TO THE ER as well as f/u information. All questions have been answered, and the patient deny any further questions with discharge and discharge plan. Some parts of this dictation were generated by voice recognition software and may contain typographical and/or grammatical inaccuracies. Differential Diagnosis Differential Diagnosis: Differential diagnostic considerations for skin/abscess/foreign body issues include abscess of skin or subcutaneous tissue, viral exanthem, dermatophytosis, urticaria, herpes zoster, allergic reaction to drug, cellulitis, eczema, insect bites, impetigo, contact dermatitis, vasculitis. Critical Care Time Critical Care Time Critical Care Time: No Discharge Plan Discharge Clinical Impression: Cellulitis Qualifiers: Site of cellulitis: extremity Site of cellulitis of extremity: upper extremity Laterality: left Qualified Code(s): L03.114 - Cellulitis of left upper limb Patient Disposition: Home Condition: Stable Instructions: Cellulitis (ED) Additional Instructions: Wash area twice daily with warm soapy water, pat dry, apply bacitracin. Take antibiotic as prescribed follow-up with primary care provider take Tylenol alternating with Motrin as needed for pain. Per package instructions. For new or worsening symptoms go directly to the ER Patient Language: Yoruba Prescriptions: New cephalexin 500 mg capsule 500 mg PO QID 7 Days Qty: 28 0RF Follow-up/Referrals: Melida Slater, SULLY [Primary Care Provider, Family Practice] - 1 Week Clinical Impression: Cellulitis Stand Alone Forms: Work/School Release IP Time of Disposition: 08:31
[2025-06-26 08:24] VITALS: BP 129/80; PULSE 86; RESP 16; TEMP 36.6; O2SAT 100
== END 2025-06-26 08:38 | disposition home or self-care (01) ==
PROVIDERS: Emergency Provider Nurse Practitioner; PCP Nurse Practitioner Family
DX: L03.114 Cellulitis of left upper limb (principal)
CPT/HCPCS: 99213; G0463